=== PATIENT | female | born 1980 | race Caucasian/White ===

== ENCOUNTER → 2024-08-28 10:46 | Outpatient (REF) | payer OTHER, SELFPAY | LOC: HWRAD 10:46 | PROVIDERS: ATTENDING PHYSICIAN Student in an Organized Health Care Education/Training Program | DX: E04.1 Nontoxic single thyroid nodule (principal) | CPT/HCPCS: 76536 ==

== ENCOUNTER → 2024-10-23 12:56 | Outpatient (REF) | payer OTHER, SELFPAY | LOC: HWEVLT 12:56 | PROVIDERS: ATTENDING PHYSICIAN Radiology Vascular & Interventional Radiology | DX: I83.893 Varicose veins of bilateral lower extremities with other complications (principal) | CPT/HCPCS: 93970 ==

== ENCOUNTER → 2024-12-25 09:34 | Outpatient (REF) | payer OTHER, SELFPAY | LOC: HWEVLT 09:34 | PROVIDERS: ATTENDING PHYSICIAN Radiology Diagnostic Radiology | DX: I83.892 Varicose veins of left lower extremity with other complications (principal) | CPT/HCPCS: 36478; C1769 ==

== ENCOUNTER → 2025-01-02 10:04 | Outpatient (REF) | payer OTHER, SELFPAY | LOC: HWEVLT 10:04 | PROVIDERS: ATTENDING PHYSICIAN Radiology Vascular & Interventional Radiology | DX: I83.892 Varicose veins of left lower extremity with other complications (principal) | CPT/HCPCS: 93971 ==

== ENCOUNTER 2025-05-26 07:42 | Day surgery (SDC) | payer OTHER, SELFPAY | END 2025-05-26 12:42 | disposition home or self-care (01) | LOC: GI 07:42 | PROVIDERS: ATTENDING PHYSICIAN Internal Medicine | DX: R19.4 Change in bowel habit (principal); K52.832 Lymphocytic colitis | CPT/HCPCS: 45380; 88305; 88313; 88342 ==